=== PATIENT | male | born 1965 | race Asian ===

== ENCOUNTER 2019-01-06 00:49 | Inpatient (IN) | payer OTHER ==
[~2019-01-06] VITALS: Ht 165.1 cm; Wt 98.4 kg
[2019-01-06 00:49] VITALS: BP_SYST 198
[2019-01-06] MEDS ORDERED: VALS80TA2 PO (01:01)
[2019-01-06] MEDS ORDERED: AMLO5TAB4 PO (01:01)
[2019-01-06] MEDS ORDERED: NITROGLYCERIN 0.4 MG TAB.SUBL SL ONE (01:15)
[2019-01-06] MEDS ORDERED: ASPIRIN 325 MG TABLET PO ONE (01:15)
[2019-01-06] MEDS ORDERED: hydrALAZINE HCL 20 MG/ML VIAL IVP ONE ×2 (01:30→04:45)
[2019-01-06 01:32] LABS: BASOPHILS % (AUTO) 0.5 % (0.0-2.0); EOSINOPHILS # (AUTO) 0.3 K/uL (0.0-0.4); EOSINOPHILS % (AUTO) 3.2 % (0.0-4.0); HEMATOCRIT 44.3 % (36-54); HEMOGLOBIN 15.5 g/dL (14.0-18.0); LYMPHOCYTES # (AUTO) 3.9 K/uL (1.0-5.5); LYMPHOCYTES % (AUTO) 38.9 % (20.5-51.5); MEAN CORPUSCULAR HEMOGLOBIN 31 pg (27-31); MEAN CORPUSCULAR HGB CONC 35 % (32-36); MEAN CORPUSCULAR VOLUME 90 fL (79.0-98.0); MONOCYTES # (AUTO) 0.9 K/uL (0.0-1.0); MONOCYTES % (AUTO) 8.7 % (1.7-9.3); NEUTROPHILS # (AUTO) 4.9 K/uL (1.8-7.7); NEUTROPHILS % (AUTO) 48.7 % (40.0-70.0); PLATELET COUNT (AUTO) 251 K/uL (130-430); RED BLOOD CELL COUNT(AUTO) 4.93 MIL/uL (4.2-6.2); RED CELL DISTRIBUTION WIDTH 13.5 % (9.0-15.0); WHITE BLOOD COUNT (AUTO) 10.1 K/uL (4.8-10.8)
[2019-01-06 01:45] LABS: CALCIUM 8.2 mg/dL (8.4-11.0); CREATININE 1.05 mg/dL (0.55-1.30); POTASSIUM 3.1 mmol/L (3.5-5.1)
[2019-01-06] MEDS ORDERED: MORPHINE 2 MG/ML INJ. SYRINGE IVP ONE (01:45)
[2019-01-06 01:46] LABS: PROTHROMBIN TIME 10.4 SECS (9.5-12.5)
[2019-01-06 01:51] LABS: ALBUMIN 3.8 g/dL (3.4-4.8); TOTAL BILIRUBIN 0.3 mg/dL (0.0-1.0)
[2019-01-06] MEDS ORDERED: cloNIDine HCL 0.1 MG TABLET PO PRN (05:30)
[2019-01-06 05:46] LABS: BILIRUBIN,URINE NEGATIVE (NEGATIVE); BLOOD, URINE NEGATIVE (NEGATIVE); CLARITY/URINE CLEAR (CLEAR); COLOR,URINE YELLOW (YELLOW); GLUCOSE,URINE 2+ (NEGATIVE); KETONES,URINE NEGATIVE (NEGATIVE); LEUKOCYTE ESTERASE ,URINE NEGATIVE (NEGATIVE); NITRITE, URINE NEGATIVE (NEGATIVE); PROTEIN URINE NEGATIVE (NEGATIVE); UROBILINOGEN,URINE 0.2 (0.2-1.0)
[2019-01-06 06:07] VITALS: BP_SYST 155
[2019-01-06 08:49] VITALS: BP_SYST 142
[2019-01-06] MEDS ORDERED: POTASSIUM CHLORIDE 20 MEQ TAB.PRT.SR PO ONE (09:30)
[2019-01-06 11:30] VITALS: BP_SYST 148
[2019-01-06] MEDS ORDERED: METOPROLOL TARTRATE 25 MG TABLET PO ONE (12:45)
[2019-01-06] MEDS ORDERED: ASPIRIN 81 MG TABLET(ECOTRIN) PO ONE (12:45)
[2019-01-06] MEDS ORDERED: PANTOPRAZOLE SODIUM 40 MG TAB PO ONE (12:45)
[2019-01-06] MEDS ORDERED: *HEPARIN PER PHARMACY XX ONE (12:45)
[2019-01-06] MEDS ORDERED: HEPARIN SODIUM,PORCINE 5000 UNITS/ML VIAL IV ONE (13:00)
[2019-01-06] MEDS ORDERED: HEPARIN SODIUM,PORCINE 3000 UNITS/0.6 ML BOLUS IVP PRN (13:00)
[2019-01-06] MEDS ORDERED: HEPARIN SODIUM,PORCINE 2000 UNITS/0.4 ML BOLUS IVP PRN (13:00)
[2019-01-06] MEDS ORDERED: INSULIN REGULAR, HUMAN 100 UNITS/ML, 10 ML VIAL (humuLIN R) SUBCUT PRN (13:15)
[2019-01-06] MEDS ORDERED: DEXTROSE 50% JECT 50 ML DISP.SYRIN IVP PRN (13:15)
[2019-01-06] MEDS ORDERED: ACETAMINOPHEN 325 MG TABLET PO PRN (13:30)
[2019-01-06] MEDS ORDERED: TEMAZEPAM 15 MG CAPSULE PO PRN (13:30)
[2019-01-06] MEDS ORDERED: NITROGLYCERIN 0.4 MG TAB.SUBL SL PRN (13:30)
[2019-01-06] MEDS ORDERED: ATORVASTATIN 20 MG TABLET PO ONE (13:45)
[2019-01-06] MEDS: HEPARIN 25,000 UNITS in 250 ML PREMIX IV PRN ×2 (14:10→21:11)
[2019-01-06 15:27] VITALS: BP_SYST 155
[2019-01-06 20:10] VITALS: BP_SYST 147
[2019-01-06] MEDS ORDERED: VALSARTAN 80 MG TABLET (DIOVAN) PO SCH (21:30)
[2019-01-06] MEDS: DOCUSATE SODIUM 100 MG CAPSULE PO SCH (21:48)
[2019-01-06] MEDS: METOPROLOL TARTRATE 25 MG TABLET PO SCH (21:48)
[2019-01-06] MEDS: PANTOPRAZOLE SODIUM 40 MG TAB PO SCH (21:49)
[2019-01-07] VITALS: BP_SYST 138
[2019-01-07 03:30] LABS: BASOPHILS # (AUTO) 0.1 K/uL (0.0-0.2); BASOPHILS % (AUTO) 0.6 % (0.0-2.0); EOSINOPHILS # (AUTO) 0.1 K/uL (0.0-0.4); EOSINOPHILS % (AUTO) 1.1 % (0.0-4.0); HEMATOCRIT 44.1 % (36-54); LYMPHOCYTES # (AUTO) 3.6 K/uL (1.0-5.5); LYMPHOCYTES % (AUTO) 30.5 % (20.5-51.5); MEAN CORPUSCULAR HEMOGLOBIN 31 pg (27-31); MEAN CORPUSCULAR HGB CONC 34 % (32-36); MEAN CORPUSCULAR VOLUME 90 fL (79.0-98.0); MONOCYTES % (AUTO) 8.5 % (1.7-9.3); NEUTROPHILS # (AUTO) 6.9 K/uL (1.8-7.7); NEUTROPHILS % (AUTO) 59.3 % (40.0-70.0); PLATELET COUNT (AUTO) 274 K/uL (130-430); RED BLOOD CELL COUNT(AUTO) 4.88 MIL/uL (4.2-6.2); RED CELL DISTRIBUTION WIDTH 14.1 % (9.0-15.0); WHITE BLOOD COUNT (AUTO) 11.6 K/uL (4.8-10.8)
[2019-01-07 04:00] LABS: ALBUMIN 3.4 g/dL (3.4-4.8); CALCIUM 8.3 mg/dL (8.4-11.0); CREATININE 1.04 mg/dL (0.55-1.30); POTASSIUM 3.8 mmol/L (3.5-5.1); THYROID STIMULATING HORMONE 0.85 uIu/mL (0.36-3.74); TOTAL BILIRUBIN 0.5 mg/dL (0.0-1.0)
[2019-01-07 04:40] VITALS: BP_SYST 153
[2019-01-07 08:00] VITALS: BP_SYST 145
[2019-01-07] MEDS: METOPROLOL TARTRATE 25 MG TABLET PO SCH (08:23)
[2019-01-07] MEDS: DOCUSATE SODIUM 100 MG CAPSULE PO SCH (08:24)
[2019-01-07] MEDS: PANTOPRAZOLE SODIUM 40 MG TAB PO SCH (08:24)
[2019-01-07] MEDS ORDERED: LOSARTAN POTASSIUM 50 MG TABLET (COZAAR) PO SCH (09:00)
[2019-01-07] MEDS ORDERED: ASPIRIN 81 MG TABLET(ECOTRIN) PO SCH (09:00)
[2019-01-07] MEDS ORDERED: ATORVASTATIN 20 MG TABLET PO SCH (09:00)
[2019-01-07] MEDS: HEPARIN 25,000 UNITS in 250 ML PREMIX IV PRN (09:49)
[2019-01-07 09:58] VITALS: BP_SYST 145
[2019-01-07 12:00] VITALS: BP_SYST 135
== END 2019-01-07 12:25 | disposition short-term general hospital (02) | DRG 282 ==
LOC: SED 00:49 → STU 05:29
PROVIDERS: ADMIT Internal Medicine; ATTEND Internal Medicine
DX: I21.4 Non-ST elevation (NSTEMI) myocardial infarction (principal); I10 Essential (primary) hypertension; E66.9 Obesity, unspecified; I25.10 Atherosclerotic heart disease of native coronary artery without angina pectoris; E11.9 Type 2 diabetes mellitus without complications; E78.5 Hyperlipidemia, unspecified; Z68.36 Body mass index [BMI] 36.0-36.9, adult; Z90.49 Acquired absence of other specified parts of digestive tract; Z79.899 Other long term (current) drug therapy
CPT/HCPCS: 36415; 71045; 80053; 80061; 81003; 82550-TC; 82962; 83880; 84439; 84443-TC; 84484; 85025; 85379; 85610-TC; 85730-TC; 93005; 93306; 96374; 96375; 96376; 99285; G0378; J0360; J1644; J1815; J2270